=== PATIENT | female | born 1975 | race Caucasian/White ===

== ENCOUNTER 2025-04-26 20:07 | Emergency (ER) | payer OTHER, SELFPAY ==
[2025-04-26 20:12] VITALS: BP 133/76
[2025-04-26 23:38] VITALS: BMI 23.6
[2025-04-27] MEDS: TYLENOL 650 MG PO (00:53)
[2025-04-27] MEDS: ADACEL 0.5 ML IM (00:55)
[2025-04-27 01:10] VITALS: BP 142/93
--- NOTE | 2025-04-27 01:35 | ED.GENMED ---
History of Present Illness
General
Chief Complaint: Skin Surface Trauma
Source: patient
Exam Limitations: none
Time Seen by Provider: 04/26/25 23:19
Nursing documentation reviewed up to this point in time: agreed with
History of Present Illness
History of Present Illness:
TIME OF INITIAL EVALUATION
-23:20
REVIEW OF OLD RECORDS
- N/A
CHIEF COMPLAINT(S)
Laceration of left third finger
HISTORY OF PRESENT ILLNESS
The patient is a 49-year-old female who presents to the emergency department for evaluation of laceration to her left third finger. She states she was cutting vegetables earlier today with new, very sharp knives when she slipped and cut her finger.
She reports significant bleeding from the finger immediately prompting visit to the emergency department. Patient's did place a wrap on her finger to help stop bleeding. Patient denies any other associated injuries. She denies any
numbness/tingling in affected finger. She is unsure when her last tetanus shot was but believes it was most definitely greater than 5 years ago.
PHYSICAL EXAM
-General: Well appearing in no distress
-HEENT: Moist oral mucosa
-Neurologic: Excellent strength all extremities, no obvious coordination deficits
-Psychiatric: Appropriate mental status, normal insight and judgement
-Extremities: Laceration to left third finger as described below. Full ROM in left finger in DIP, PIP, and MCP joints against resistance.
-Skin: Approximately 1.5 cm flap laceration to distal aspect of left third finger at palmar aspect. Wound edges well-approximated with minimal bleeding at this time.
PLAN
- Primary closure of laceration with sutures
- Update Tdap vaccine
DIFFERENTIAL DIAGNOSIS
The differential diagnosis includes, in no particular order and is not limited to:
1. Finger laceration
2. Tendon injury
3. Nerve injury
UPDATE
- Verbal consent obtained by patient. Wound anesthetized with 1% plain lidocaine via digital block. Wound thoroughly cleansed with normal saline and Betadine. Laceration closed with 3 simple interrupted 5-0 nylon sutures with excellent wound
approximation and good hemostasis obtained. Patient tolerated procedure well.
Disposition:
SUMMARY OF ENCOUNTER
49-year-old female presenting with laceration to left third finger occurring just prior to arrival. No evidence of associated nerve or tendon injury. Vitals and physical exam as above. Discussion was had regarding closure by secondary intention
versus primary closure with sutures today. Patient prefers for primary closure today. Verbal consent obtained and wound successfully closed with 3 simple interrupted nylon sutures. Tetanus shot updated. Wound dressed with topical antibiotic and
bandage. Wound care instructions discussed at length with patient including suture removal in 10 days. Advised patient to monitor closely for signs of infection. Stable for discharge home
MEDICATION RECONCILIATION
The patient was advised to use Tylenol and/or motrin as needed for pain relief
Review of Systems
Review of Systems
Allergies reviewed?: Yes
All Other Systems: ROS reviewed and negative except as documented in HPI and ROS
Phy Exam
Physical Exam
Physical Exam:
See HPI
Course
Orders/Labs/Results
Orders:
Orders
04/27/25 00:25
Acetaminophen [Tylenol] 650 mg PO NOW STA
Tetanus/Diphth/Acelpertussis [Adacel] 0.5 ml IM .ONCE ONE
Vital Signs
Initial and Last Documented VS:
Initial Vital Signs
Temp Pulse BP Pulse Ox
98.6 F 62 133/76 100
04/26/25 20:12 04/26/25 20:12 04/26/25 20:12 04/26/25 20:12
Last Documented Vital Signs
Temp Pulse BP Pulse Ox
98.6 F 62 142/93 99
04/26/25 20:12 04/26/25 20:12 04/27/25 01:10 04/27/25 01:36
Procedures
Laceration Closure
Left Third Finger(s):
Status of Wound: clean
Size of Wound in cm: 1.5
Description of Wound Edges: flap-well vascularized
Preparation: cleaned with saline and cleaned with Betadine
Anesthesia: 1% Lidocaine and Digital-Regional
Revision/Debridement: routine- no revision
Wound exploration: explored to base- no FB
Type of Closure: single layer closure and interrupted sutures
Skin Closure Material: 5-0 nylon
Number of sutures: 3
*Pulse Oximetry
SaO2: 99
Oxygen Mode of Delivery: Room air
Patient hypoxic: no
*EKG
Interpreted by ED Provider?: NA
*Bobbin Loose End Finder Interpretation
Rate: Bobbin Loose End Finder- N/A
*Critical Care Note
Total Time (30-74mins, 75-104mins- exclusive of procedures): Not Applicable
ED Attending Note
-
Portions of this chart may have been created with voice recognition software.� Occasional wrong word or��sound alike� substitutions may have occurred due to the inherent limitations of voice recognition software.
Discharge Plan
Departure
Patient Disposition: Home (Routine Discharge)
Date of Disposition: 04/27/25
Time of Disposition: 00:22
Patient with high blood pressure during this ER visit?: Yes
Condition: Good
Discharge Problem:
Laceration of finger of left hand
Instructions: Wound Care (DC), Laceration Repair With Stitches (DC), BLOOD PRESSURE
Referrals:
Albertina Murray DO [Family Provider, [facility]] - Follow up in 10 days
Activity Restrictions/Additional Instructions:
RETURN TO THE EMERGENCY DEPARTMENT WITH ANY NUMBNESS/TINGLING IN AFFECTED FINGER OR ANY SIGNS OF INFECTION INCLUDING FEVER, CHILLS, SIGNIFICANT REDNESS, WARMTH, PUS DRAINING FROM WOUND, DECREASED RANGE OF MOTION, INTRACTABLE PAIN, OR ANY OTHER
CONCERNS
- As discussed�your laceration was closed with 3 sutures today emergency department. You should keep wound clean and dry. Wash gently with soap and water daily and keep covered with a small amount of topical antibiotic. Sutures will need to be
removed in approximately 10 days. This can be done with primary care, urgent care, or emergency department.
- I would avoid submerging wound in pools or oceans until sutures are removed and laceration has healed
- You can take Tylenol and/or Motrin as needed for pain.
- Follow-up for suture removal as discussed
Monitor your symptoms closely and return to the emergency department with any acute worsening/new symptoms or any other concerns
Interventions
Interventions:
*Risk Screen - Suicide Last Done: 04/27/25 01:10
*General Assessment Last Done: 04/26/25 23:39
*Neglect/Abuse Screening Last Done: 04/26/25 23:39
*ED- Fall Risk Assessment Last Done: 04/26/25 23:39
*ED COVID-19 Vaccine History Last Done: 04/26/25 23:39
*Nursing Disposition Last Done: 04/27/25 01:10
ED-Skin Assessment Last Done: 04/26/25 23:39
Discharge Date and Time
Discharge Date/Time: 04/27/25 01:13
Print Language: CYMRO
== END 2025-04-27 01:13 | disposition home or self-care (01) ==
LOC: EMR 20:07
PROVIDERS: EMERGENCY PHYSICIAN Emergency Medicine; FAMILY PHYSICIAN Family Medicine
DX: S61.213A Laceration without foreign body of left middle finger without damage to nail, initial encounter (principal); W26.0XXA Contact with knife, initial encounter; Y93.G1 Activity, food preparation and clean up; Z23 Encounter for immunization
CPT/HCPCS: 99282; 12001; 90471; 90715